=== PATIENT | female | born 1970 | race Caucasian/White ===

== ENCOUNTER 2019-06-02 08:16 | Emergency (ER) | payer BC ==
[~2019-06-02] VITALS: Ht 162.6 cm; Wt 72.6 kg
[2019-06-02 08:16] VITALS: BP 225/130
[~2019-06-02 08:16] MED LIST: ACET1TAB16; METO10TA2; PROT1TAB2; VICO5TAB; Vitamin C; magnesium citrate; tylenol #3
[2019-06-02] MEDS ORDERED: LISI10TA4 PO (08:23)
[2019-06-02] MEDS ORDERED: LABE100T36 PO (08:23)
== END 2019-06-02 09:00 | disposition left against medical advice (07) ==
LOC: M ED 08:16
DX: Z53.21 Procedure and treatment not carried out due to patient leaving prior to being seen by health care provider (principal)

== ENCOUNTER 2021-09-06 12:18 | Emergency (ER) | payer BC, SELFPAY ==
[~2021-09-06] VITALS: Ht 162.6 cm; Wt 67.1 kg
[~2021-09-06 12:18] MED LIST changes: +LABE100T5 PO; +LISI10TA22 PO
[2021-09-06 12:19] VITALS: BP 226/120
== END 2021-09-06 15:15 | disposition left against medical advice (07) ==
LOC: M ED 12:18
DX: Z53.29 Procedure and treatment not carried out because of patient's decision for other reasons (principal)

== ENCOUNTER → 2021-12-07 | Outpatient (CLI) | payer OTHER | LOC: M RAD 07:52 | PROVIDERS: ATTEND Pediatrics | DX: Z82.49 Family history of ischemic heart disease and other diseases of the circulatory system (principal) ==

== ENCOUNTER → 2021-12-28 | Outpatient (CLI) | payer OTHER | LOC: M WHC 12:55 | PROVIDERS: ATTEND Pediatrics | DX: Z12.31 Encounter for screening mammogram for malignant neoplasm of breast (principal); Z13.820 Encounter for screening for osteoporosis; N95.9 Unspecified menopausal and perimenopausal disorder; Z80.49 Family history of malignant neoplasm of other genital organs; M85.852 Other specified disorders of bone density and structure, left thigh ==

== ENCOUNTER → 2022-02-17 | Outpatient (CLI) | payer OTHER | LOC: M PLAIMG 11:58 | PROVIDERS: ATTEND Pediatrics | DX: Z82.49 Family history of ischemic heart disease and other diseases of the circulatory system (principal) ==

== ENCOUNTER → 2022-06-04 | Outpatient (CLI) | payer OTHER ==
[~2022-06-04] MED LIST changes: +APAP325T4 PO; -LABE100T5 PO; +LABE100T71 PO; +LOSA100T5 PO; +LOSA50TA5 PO
== END ==
LOC: M LABSMTC 09:01
PROVIDERS: ATTEND Anesthesiology
DX: Z01.812 Encounter for preprocedural laboratory examination (principal); Z11.52 Encounter for screening for COVID-19

== ENCOUNTER 2022-06-08 08:09 | Day surgery (SDC) | payer OTHER ==
[~2022-06-08] VITALS: Ht 162.6 cm; Wt 69.6 kg
[2022-06-08] MEDS: NS 1,000 ML IV ONE (08:44)
[2022-06-08] MEDS ORDERED: LIDOCAINE 2% 100MG/5ML SDV (FOR ANES.) As Ordered ONE (09:29)
[2022-06-08] MEDS ORDERED: propofoL 500 MG/50 ML VIAL As Ordered ONE (09:29)
[2022-06-08 10:25] VITALS: BP 168/102
== END 2022-06-08 10:32 | disposition home or self-care (01) ==
LOC: M OPP 08:09
PROVIDERS: ATTEND Surgery
DX: Z12.11 Encounter for screening for malignant neoplasm of colon (principal); D12.0 Benign neoplasm of cecum; D12.3 Benign neoplasm of transverse colon; D12.5 Benign neoplasm of sigmoid colon; I10 Essential (primary) hypertension; F17.200 Nicotine dependence, unspecified, uncomplicated; Z79.899 Other long term (current) drug therapy; Z88.8 Allergy status to other drugs, medicaments and biological substances; Z85.42 Personal history of malignant neoplasm of other parts of uterus; Z86.79 Personal history of other diseases of the circulatory system

== ENCOUNTER → 2022-06-28 | Outpatient (REF) | payer OTHER ==
[2022-06-28 18:33] LABS: BLOOD UREA NITROGEN 17 MG/DL (7-18); CALCIUM LEVEL 10.4 MG/DL (8.5-10.1); CARBON DIOXIDE LEVEL 30 MEQ/L (21-32); CHLORIDE LEVEL 98 MEQ/L (98-107); CHOLESTEROL LEVEL 225 MG/DL (<200); CHOLESTEROL RISK RATIO 3.947 (<5); CREATININE FOR GFR 1.03 MG/DL (0.55-1.30); GLOMERULAR FILTRATION RATE > 60.0 (>51); GLUCOSE, FASTING 99 MG/DL (70-100); HDL CHOLESTEROL 57 MG/DL (>40); LDL CHOLESTEROL 136 MG/DL (<100); NON-HDL-C 168 MG/DL; SODIUM LEVEL 135 MEQ/L (136-145); TRIGLYCERIDES LEVEL 162 MG/DL (<150)
[2022-06-28 19:05] LABS: TOTAL 25(OH) VITAMIN D 17.2 NG/ML (30.0-100.0)
== END ==
LOC: M LAB REF 16:34
PROVIDERS: ATTEND Pediatrics
DX: M85.80 Other specified disorders of bone density and structure, unspecified site (principal); I10 Essential (primary) hypertension; E78.5 Hyperlipidemia, unspecified; E55.9 Vitamin D deficiency, unspecified

== ENCOUNTER → 2023-04-03 | Outpatient (CLI) | payer OTHER | LOC: M WHC 09:07 | PROVIDERS: ATTEND Pediatrics | DX: Z12.31 Encounter for screening mammogram for malignant neoplasm of breast (principal); Z80.49 Family history of malignant neoplasm of other genital organs ==

== ENCOUNTER → 2023-07-03 | Outpatient (REF) | payer OTHER ==
[2023-07-03 16:57] LABS: BASO # 0.1 10^3/uL (0.0-0.2); BASO % 0.6 % (0.0-1.0); EOS # 0.1 10^3/uL (0.0-0.5); EOS % 1.3 % (0.0-3.0); HEMATOCRIT 42.3 % (36.0-47.0); HEMOGLOBIN 13.9 g/dl (12.0-15.5); LYMPH # 3.1 10^3/uL (1.5-5.0); LYMPH % 36.3 % (24.0-44.0); MEAN CORPUSCULAR HGB CONC 32.9 g/dl (32.0-36.5); MEAN CORPUSCULAR VOLUME 100.5 fl (80.0-96.0); MONO # 0.4 10^3/uL (0.0-0.8); MONO % 4.5 % (2.0-8.0); NEUTROPHILS # 4.9 10^3/uL (1.5-8.5); NEUTROPHILS % 56.8 % (36.0-66.0); PLATELET COUNT, AUTOMATED 305 10^3/uL (150-450); RED BLOOD COUNT 4.21 10^6/uL (4.00-5.40); WHITE BLOOD COUNT 8.6 10^3/uL (4.0-10.0)
[2023-07-03 17:09] LABS: CREATININE, URINE 55.3 MG/DL; MALB URINE SIEMENS < 3.0 MG/L; MAU/CREAT RATIO 5.4 MCG/MG (0.0-30.0)
[2023-07-03 17:24] LABS: BLOOD UREA NITROGEN 23 MG/DL (9-23); CALCIUM LEVEL 10.1 MG/DL (8.5-10.1); CARBON DIOXIDE LEVEL 29 MMOL/L (20-31); CHLORIDE LEVEL 104 MMOL/L (98-107); CREATININE FOR GFR 0.84 MG/DL (0.55-1.30); GLOMERULAR FILTRATION RATE > 60.0 (>51); GLUCOSE, FASTING 93 MG/DL (60-100); POTASSIUM SERUM 4.7 MMOL/L (3.5-5.1); SODIUM LEVEL 141 MMOL/L (136-145)
== END ==
LOC: M LAB REF 16:00
PROVIDERS: ATTEND Pediatrics
DX: I10 Essential (primary) hypertension (principal)

== ENCOUNTER → 2023-07-11 | Outpatient (REF) | payer OTHER ==
[2023-07-11 17:13] LABS: FOLATE > 24.0 NG/ML (>5.4)
[2023-07-11 17:15] LABS: VITAMIN B12 LEVEL 313 PG/ML (211-911)
== END ==
LOC: M LAB REF 16:15
PROVIDERS: ATTEND Pediatrics
DX: D75.89 Other specified diseases of blood and blood-forming organs (principal)

== ENCOUNTER → 2023-11-05 | Outpatient (CLI) | payer OTHER ==
[~2023-11-05] MED LIST changes: +LABE100T40 PO; -LABE100T71 PO
== END ==
LOC: M RAD 06:27
PROVIDERS: ATTEND Pediatrics
DX: Z12.2 Encounter for screening for malignant neoplasm of respiratory organs (principal); F17.200 Nicotine dependence, unspecified, uncomplicated; J84.10 Pulmonary fibrosis, unspecified; R91.1 Solitary pulmonary nodule

== ENCOUNTER → 2024-02-28 | Outpatient (CLI) | payer OTHER ==
[2024-02-28 11:07] LABS: CHOLESTEROL RISK RATIO 2.76 (<5); LDL CHOLESTEROL 52.6 MG/DL (<100)
== END ==
LOC: M LAB 10:10
PROVIDERS: ATTEND Internal Medicine Cardiovascular Disease
DX: E78.2 Mixed hyperlipidemia (principal)

== ENCOUNTER → 2024-04-04 | Outpatient (REF) | payer OTHER, MEDICAID ==
[2024-04-04 18:49] LABS: CALCIUM LEVEL 10.1 MG/DL (8.5-10.1); CREATININE FOR GFR 1.07 MG/DL (0.55-1.30); GLOMERULAR FILTRATION RATE 57.3 (>51); POTASSIUM SERUM 4.1 MMOL/L (3.5-5.1)
[2024-04-04 18:50] LABS: THYROID STIMULATING HORMONE 2.799 uIU/ML (0.55-4.78); TOTAL 25(OH) VITAMIN D 47.3 NG/ML (20.0-100.0)
== END ==
LOC: M LAB REF 16:18
PROVIDERS: ATTEND Pediatrics
DX: I10 Essential (primary) hypertension (principal); M85.80 Other specified disorders of bone density and structure, unspecified site; E55.9 Vitamin D deficiency, unspecified

== ENCOUNTER → 2024-05-02 | Outpatient (CLI) | payer OTHER | LOC: M WHC 08:10 | PROVIDERS: ATTEND Pediatrics | DX: M85.80 Other specified disorders of bone density and structure, unspecified site (principal); Z12.31 Encounter for screening mammogram for malignant neoplasm of breast ==

== ENCOUNTER 2024-08-06 12:48 | Emergency (ER) | payer OTHER ==
[~2024-08-06] VITALS: Ht 162.6 cm; Wt 66.1 kg
[2024-08-06 13:08] VITALS: BP 145/92; TEMP 97.2; O2SAT 100
[2024-08-06] MEDS ORDERED: B-122500 PO (13:22)
[2024-08-06] MEDS ORDERED: ROSU10TA61 (13:22)
[2024-08-06] MEDS ORDERED: IBUP80TA (13:22)
[2024-08-06] MEDS ORDERED: ASPI81CH33 PO (13:22)
[2024-08-06] MEDS ORDERED: VITA200032 (13:22)
== END 2024-08-06 14:42 | disposition left against medical advice (07) ==
LOC: M ED 12:48
DX: Z53.21 Procedure and treatment not carried out due to patient leaving prior to being seen by health care provider (principal)

== ENCOUNTER → 2025-01-02 | Outpatient (CLI) | payer OTHER ==
[~2025-01-02] MED LIST changes: +ASPI81CH33 PO; +B-122500 PO; +IBUP80TA; +ROSU10TA61; +VITA200032
[2025-01-02 12:44] LABS: APPEARANCE, URINE CLOUDY (CLEAR); BACTERIA, URINE AUTO NEGATIVE (NEGATIVE); BILIRUBIN, URINE AUTO NEGATIVE (NEGATIVE); BLOOD, URINE BLOOD 3+ (NEGATIVE); COLOR, URINE YELLOW (YELLOW); GLUCOSE, URINE (UA) AUTO NEGATIVE (NEGATIVE); KETONE, URINE AUTO NEGATIVE (NEGATIVE); LEUKOCYTE ESTERASE, URINE AUTO NEGATIVE (NEGATIVE); NITRITE, URINE AUTO NEGATIVE (NEGATIVE); PROTEIN, URINE AUTO NEGATIVE (NEGATIVE); RBC, URINE AUTO 126 /HPF (0-3); SPECIFIC GRAVITY URINE AUTO 1.011 (1.002-1.035); SQUAMOUS EPITHELIAL CELL UR AU 0 /HPF (0-6); UROBILINOGEN, URINE AUTO 0.2 mg/dL (0.0-2.0); WBC, URINE AUTO 7 /HPF (0-3)
[2025-01-02 13:10] LABS: CALCIUM LEVEL 10.2 MG/DL (8.5-10.1); CREATININE FOR GFR 1.53 MG/DL (0.55-1.30); GLOMERULAR FILTRATION RATE 40.4 (>51); POTASSIUM SERUM 3.8 MMOL/L (3.5-5.1)
== END ==
LOC: M RAD 11:11
PROVIDERS: ATTEND Internal Medicine Cardiovascular Disease
DX: N28.9 Disorder of kidney and ureter, unspecified (principal)

== ENCOUNTER → 2025-03-27 | Outpatient (REF) | payer OTHER ==
[2025-03-27 18:02] LABS: COMPLEMENT C4 33.0 MG/DL (12-36)
[2025-03-31 22:22] LABS: ANTI-GLOMERULAR BASEMENT MEMB < 1.0 AI (<1.0)
[2025-04-02 10:44] LABS: ANTI DS-DNA AB Negative (Negative)
[2025-04-06 00:37] LABS: C ANCA TITER 1:20 Titer (<1:20)
== END ==
LOC: M LAB REF 17:05
PROVIDERS: ATTEND Internal Medicine Nephrology
DX: R31.9 Hematuria, unspecified (principal)

== ENCOUNTER → 2025-04-07 | Outpatient (CLI) | payer OTHER ==
[~2025-04-07] MED LIST changes: +ISOVUE-370 76% 100 ML VIAL As Ordered ONE
== END ==
LOC: M RAD 13:24
PROVIDERS: ATTEND Internal Medicine Nephrology
DX: N18.32 Chronic kidney disease, stage 3b (principal); R31.9 Hematuria, unspecified; N20.0 Calculus of kidney; K57.30 Diverticulosis of large intestine without perforation or abscess without bleeding
CPT/HCPCS: 74178; Q9967